=== PATIENT | female | born 1990 | race Caucasian/White ===

== ENCOUNTER 2017-01-13 22:17 | Emergency (ER) | payer SELFPAY ==
[~2017-01-13] VITALS: Ht 157.5 cm; Wt 96.0 kg
[~2017-01-13 22:17] MED LIST: CIPR250T2 PO; LOPE2TAB3 PO; NAPR500T2 PO; ZOFR4TAB3 SL
[2017-01-13 22:19] VITALS: BP 125/60; PULSE 89; RESP 16; TEMP 98.8; O2SAT 98
[2017-01-13] MEDS ORDERED: TRAM50TA PO (22:35)
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
[2017-01-13] MEDS ORDERED: TYLETAB34 PO (22:47)
== END 2017-01-13 23:06 | disposition home or self-care (01) ==
LOC: PHED 22:17
DX: R10.2 Pelvic and perineal pain (principal); Z79.899 Other long term (current) drug therapy
CPT/HCPCS: 84703; 99282; 99284